=== PATIENT | female | born 1995 | race Caucasian/White ===

== ENCOUNTER → 2019-10-07 15:03 | Outpatient (CLI) | payer BC, SELFPAY ==
[2019-10-12 19:45] LABS: Neisseria gonorrhoeae, NAA Negative (Negative)
== END ==
PROVIDERS: Visit Provider Obstetrics & Gynecology
DX: A74.9 Chlamydial infection, unspecified (principal)
CPT/HCPCS: 87491; 87591

== ENCOUNTER 2020-04-26 11:16 | Emergency (ER) | payer BC, SELFPAY ==
[2020-04-26 11:25] VITALS: BP 124/77; PULSE 99; RESP 20; TEMP 37.4; O2SAT 98; BMI 21.9
--- NOTE | 2020-04-26 11:51 | HMH.EDUTC ---
[facility] [place] Clinical Impression: Exposure to COVID-19 virus Disposition: Home, Self-Care Condition on Discharge: Good Instructions: DI for COVID-19 (Suspected or Confirmed ), Coronavirus Disease 2019, Preventing the Spread of Coronavirus Discharge Instructions Additional Instructions: *Monitor Temp, Over the counter Motrin or Tylenol as directed/as needed Tylenol every 4 hours and Motrin every 6 hours (as long as your family doctor has told you that you can take it) for fever or pain. and straight to ER if unable to lower temp less than 101.0 after medication given Follow up IMMEDIATELY for new or worsening symptoms or no Noticeable improvement over the next 48-72 hours. 911 for difficulty breathing or swallowing You were tested for today for COVID19 your test result should be back in the next 24-48 hours, you may call to the [facility] to see if your test results are back in the next 48 hours [phone] [facility] hours are 9am-9pm You was given a handout with instructions for Self Quarantine and Self isolation for while you wait on test results and what to do if they are positive If you are positive the Health Dept will be contacting you also Prescriptions: Brompheniramine/Pseudoephed/Dm [Bromfed Dm Cough Syrup] 5 - 10 ml PO Q46H PRN #200 ml PRN Reason: Cough Transmission Status: Pending to [facility]/pharmacy #[id number] Referrals: PCP,No [Primary Care Provider] - As needed Forms: Work/School Release Time of Disposition: 12:04 Medical Decision Making - Giovani Inquiry Pt receiving controlled substance: No Giovani was queried for this patient: No Vital Signs: 04/26/20 11:25 Temperature 99.4 F Temperature Source Oral Pulse Rate [Right Brachial] 99 H Respiratory Rate 20 Blood Pressure [Right Arm] 124/77 Blood Pressure Mean [Right Arm] 92 Blood Pressure Source [Right Arm] Automatic Cuff Blood Pressure Position [Right Arm] Sitting 02 Sat by Pulse Oximetry 98 Oxygen Delivery Method Room Air Orders (Tests/Meds): ORDERS Category Date Time Status Covid-19 Nasal PCR ([facility]) Routine Lab 04/26/20 11:42 Ordered [facility] [place] HPI - General Stated complaint: covid exposure, symptoms Time Seen by Provider: 04/26/20 11:51 Mode of Arrival: Ambulatory Source of Information: Patient Limitations: No Limitations Description of Symptoms (Recalled from Triage Doc. by RN): COVID TEST D/T EXPOSURE THIS PAST WEEKEND. C/O COUGH, FATIGUE, CHILLS, AND BODY ACHES SINCE YESTERDAY HEENT Symptoms (Recalled from RN notes): No Resp Symptoms (Recalled from RN notes): Yes Skin Symptoms (Recalled from RN notes): No MS Symptoms (Recalled from RN notes): No Functional Status (Recalled from RN notes): WNL - History of Present Illness Provider Complaint: Patient states that she was recently around her father that has since tested positive for COVID States that she works at [employer] and no other known exposure State that she was tested at [facility] and has not got the results back and was tested at another facility in [facility] and they called as she was waiting in the [facility] and told her she was positive for COVID States that she has cough, body aches, and chills and states that her taste if off - Related Data Previous Rx's Medication Instructions Recorded norethindrone 1 mg-ethin. 1 cap PO ONCE #28 cap 09/01/19 estradiol 20 mcg (24)-iron 75 mg (4) capsule norgestimate 0.25 mg-ethinyl 1 tab PO DAILY #28 tab 10/07/19 estradiol 35 mcg tablet azithromycin 500 mg tablet 500 mg PO .one time dose #2 tab 10/14/19 Brompheniramine/Pseudoephed/Dm 5 - 10 ml PO Q46H PRN #200 ml 04/26/20 [Bromfed Dm Cough Syrup] Allergies Allergy/AdvReac Type Severity Reaction Status Date / Time No Known Allergies Allergy Verified 10/07/19 11:20 - Worker's Comp Is this a Worker's Comp case?: No [facility] History - Hepatitis A Screen Drug use history?: No High risk sexual behaviors?: No History of sexually transmitted infection?: No Currently employed?: No [employer]
[2020-04-26 12:23] VITALS: BP 124/77; PULSE 99; RESP 20; TEMP 37.4; O2SAT 98
--- NOTE | 2020-04-26 17:05 | PC.NURSE ---
PATIENT NOTIFIED OF POSITIVE COVID TEST AT THIS TIME
== END 2020-04-26 12:25 | disposition home or self-care (01) ==
PROVIDERS: Emergency Provider Nurse Practitioner
DX: U07.1 COVID-19 (principal)
CPT/HCPCS: 99202; G0463; U0003